=== PATIENT | female | born 1970 | race Caucasian/White ===

== ENCOUNTER 2018-10-06 14:11 | Emergency (ER) | payer OTHER, SELFPAY ==
[2018-10-06 14:12] VITALS: BP 148/98; PULSE 82; RESP 14; TEMP 36.6; O2SAT 94; BMI 35.9
--- NOTE | 2018-10-06 14:28 | CT_ITS ---
STUDY: CT BRAIN WITHOUT CONTRAST REASON FOR EXAM: Female, 48 years old. Seizure new onset RADIATION DOSAGE (If Supplied By Facility): CTDIvol = ( 44.99 ) mGy, DLP = ( 745.49 ) mGycm TECHNIQUE: Transaxial CT imaging of the brain was performed without administration of intravenous contrast material. Individualized dose optimization techniques were used for this CT. COMPARISON: None. FINDINGS: Normal soft tissue structures. Normal calvarium. Normal size ventricles and extra-axial spaces for the patient's age. Normal white matter tracts of the cerebral hemispheres. Normal basal ganglia and thalami. Normal brainstem. Normal cerebellum. There is no intracranial hemorrhage. There are no findings of an acute ischemic infarction. Normal visualized paranasal sinuses. CT/Brain/Head without Contrast IMPRESSION: Normal unenhanced CT scan of the brain. Electronically Signed: Kadie Iglesias MD at 15:52 EST Tel , Service support ,
--- NOTE | 2018-10-06 14:28 | EKG12_ITS ---
Test Reason : SEIZURE Blood Pressure : / mmHG Vent. Rate : 077 BPM Atrial Rate : 077 BPM P-R Int : 152 ms QRS Dur : 098 ms QT Int : 394 ms P-R-T Axes : 032 029 023 degrees QTc Int : 445 ms Normal sinus rhythm Normal ECG Confirmed by HALEY IVERSON MD ([id number]), editorial project manager GILMAR MAYES ([id number]) on 10/07/2018 2:36:48 PM Referred By: MANUEL Confirmed By:HALEY IVERSON MD
--- NOTE | 2018-10-06 14:29 | ED.VISSUMM ---
- ER Visit Summary Date of Service: 10/06/18 Chief Complaint: Seizure History of Present Illness: The patient is a 48 F history of chronic back pain on tramadol. Recently switched over from Vicodin. He has had 2 prior back surgeries. No other medical history. Denies any recent head trauma. She took a shower today. She got out her was cutting her hair and he says she started shaking her eyes glazed over and he lowered her to the floor. He thinks she had around a 3+ minute seizure. She did not fall. There was no injury. She is awoken and is feeling better. She has a history of chronic headaches. She is on no blood thinners. She denies any recent illness other than sinus congestion. She did not eat today. Physical Examination: Vital signs are stable and afebrile. Her initial blood pressure is 148/98.. HEENT exam pupils round reactive light. Mouth is unremarkable. There are no bite crowell on the tongue. Face and head no signs of trauma. No facial droop. Normal speech. Neck nontender. Lungs clear to auscultation bilaterally. Heart rhythm rate about 80 no murmur. Abdomen soft and nontender. She is moving all 4 extremities. They are neurovascularly intact. She has equal symmetrical clay press operator strength 5 out of 5. Fingertip to nose within normal limits. Dorsi plantar flexion intact. There are no motor weakness or loss of sensation either upper or lower extremities. Neurologically she is awake alert with no focal motor deficits. Her NIH score is 0. Back is nontender. Test Results: CBC normal. BMP normal. EKG sinus rhythm rate of 77 no acute signs of MA or ischemia. No dysrhythmia. CT of the brain done without contrast shows no acute abnormality. Read by the radiologist and reviewed by me. Emergency Department Course and Treatment: Middle-aged female with first time reported what sounds like a seizure. Repeat exam at 1621 patient doing well. Neurologic exam normal. I went over all test results with the patient and his significant other in the room. They are comfortable being discharged with outpatient follow-up with her primary care physician and also neurologist. I did explain to them that I do not know currently at this time what may have caused her to have a seizure. She may need to follow-up with outpatient EEG. This may have occurred from her recently stopping narcotic pain medication but there are also no other possibilities. Treatment Plan: No driving. Follow-up with neurology. Return if recurrent seizure. Disposition: Discharge Impression: Acute seizure of uncertain etiology This note was generated with Redapt dictation software. It may contain incorrect words, spelling, and punctuation that were not noted in review of the chart prior to signing ED Disposition - Plan for ED Patient: Referrals: Indira Mcgee DO [STAFF PHYSICIAN] -
--- NOTE | 2018-10-06 14:32 | ED.DCSUM_ITS ---
- ER Visit Summary Date of Service: 10/06/18 Chief Complaint: Seizure History of Present Illness: The patient is a 48 F history of chronic back pain on tramadol. Recently switched over from Vicodin. He has had 2 prior back surgeries. No other medical history. Denies any recent head trauma. She took a shower today. She got out her was cutting her hair and he says she started shaking her eyes glazed over and he lowered her to the floor. He thinks she had around a 3+ minute seizure. She did not fall. There was no injury. She is awoken and is feeling better. She has a history of chronic headaches. She is on no blood thinners. She denies any recent illness other than sinus congestion. She did not eat today. Physical Examination: Vital signs are stable and afebrile. Her initial blood pressure is 148/98.. HEENT exam pupils round reactive light. Mouth is un remarkable. There are no bite crowell on the tongue. Face and head no signs of trauma. No facial droop. Normal speech. Neck nontender. Lungs clear to auscultation bilaterally. Heart rhythm rate about 80 no murmur. Abdomen soft and nontender. She is moving all 4 extremities. They are neurovascularly intact. She has equal symmetrical lockstitcher strength 5 out of 5. Fingertip to nose within normal limits. Dorsi plantar flexion intact. There are no motor weakness or loss of sensation either upper or lower extremities. Neurologically she is awake alert with no focal motor deficits. Her NIH score is 0. Back is nontender. Test Results: CBC normal. BMP normal. EKG sinus rhythm rate of 77 no acute signs of TN or ischemia. No dysrhythmia. CT of the brain done without contrast shows no acute abnormality. Read by the radiologist and reviewed by me. Emergency Department Course and Treatment: Middle-aged female with first time reported what sounds like a seizure. Repeat exam at 1621 patient doing well. Neurologic exam normal. I went over all test results with the patient and his significant other in the room. They are comfortable being discharged with outpatient follow-up with her primary care physician and also neurologist. I did explain to them that I do not know currently at this time what may have caused her to have a seizure. She may need to follow-up with outpatient EEG. This may have occurred from her recently stopping narcotic pain medication but there are also no other possibilities. Treatment Plan: No driving. Follow-up with neurology. Return if recurrent seizure. Disposition: Discharge Impression: Acute seizure of uncertain etiology This note was generated with Phorm dictation software. It may contain incorrect words, spelling, and punctuation that were not noted in review of the chart prior to signing ED Disposition - Plan for ED Patient: Referrals: Indira Mcgee DO [STAFF PHYSICIAN] -
[2018-10-06 14:48] LABS: Absolute Lymphocyte Count 1.83 X10^3/ul (0.83-4.51); Absolute Neutrophil Count 3.2 X10^3/uL (2.0-7.7); Basophil# 0.01 X10^3/uL; Basophil% 0.2 % (0-1); Eosinophil# 0.11 X10^3/uL; Hematocrit 39.6 % (37-47); Lymphocyte # 1.83 X10^3/ul (4.0); Mean Corp Hgb Conc 32.8 g/gl (32-36); Mean Corpuscular Hgb 28.7 pg (27.0-32.0); Mean Corpuscular Volume 87.4 fL (81-99); Monocyte# 0.36 X10^3/uL; Monocyte% 6.5 % (0-10); Neutrophil # 3.23 X10^3/uL (2.7-7.7); Neutrophil % 58.3 % (47-70); Platelet Count 307 K/mm3 (150-450); RBC Distribution Width CV 13.5 % (11.6-14.6); RBC Distribution Width SD 43.3 fl (35.1-43.9); Red Blood Count 4.53 M/mm3 (4.2-5.4); White Blood Count 5.5 K/mm3 (4.4-11.0)
[2018-10-06 14:49] LABS: POSITIVE COUNT NO; POSITIVE DIFFERENTIAL NO; POSITIVE MORPHOLOGY NO
[2018-10-06 14:56] LABS: Anion Gap 9 (5-15); BUN 13 mg/dL (7-18); BUN/Creat Ratio 12.6 RATIO (10-20); Calcium,Total 8.2 mg/dL (8.5-10.1); Chloride 107 mmol/L (98-107); Creatinine, Serum 1.03 mg/dL (0.55-1.02); EST Glomerular Filtration Rate 61 mL/min (>60); Est Glom Filt Rate - Afr Amer 74 mL/min (>60); Estimated Creatinine Clearance 63.21 ml/min; Glucose 105 mg/dL (74-106); Potassium 3.5 mmol/L (3.5-5.1); Sodium Level 138 mmol/L (136-145)
--- NOTE | 2018-10-06 16:24 | ED.DEP ---
ED Disposition - Plan for ED Patient: Disposition: Home or Assisted Living Instructions: ED Seizure New Onset Unk Cause Referrals: Bryson Bradley DO [Primary Care Provider] - Jf Milton MD [STAFF PHYSICIAN] - As soon as possible Additional Instructions: Call and follow-up with her neurologist Dr. Milton or your primary care physician. Due to you having a seizure today they may need to do a follow-up EEG which is a neurological test for seizures. Till seen in follow-up.
[2018-10-06 16:28] VITALS: BP 155/101; PULSE 74; RESP 21; O2SAT 97
== END 2018-10-06 16:29 | disposition home or self-care (01) ==
PROVIDERS: Emergency Provider Emergency Medicine; Family Provider Family Medicine; PCP Family Medicine
DX: R56.9 Unspecified convulsions (principal); M54.9 Dorsalgia, unspecified; G89.29 Other chronic pain; Z79.891 Long term (current) use of opiate analgesic; Z72.0 Tobacco use; Z79.899 Other long term (current) drug therapy
CPT/HCPCS: 70450; 80048; 85025; 93005; 99285; A4216

== ENCOUNTER → 2023-05-15 | Outpatient (CLI) | payer OTHER, MEDICARE, SELFPAY ==
--- NOTE | 2023-05-15 16:16 | RAD_ITS ---
INDICATION: Other spondylosis with myelopathy, cervical region EXAMINATION/TECHNIQUE: X-RAY - XR Spine Cervical 2 or 3 Views: Frontal and lateral views cervical spine COMPARISON: None. FINDINGS: VERTEBRAE: No fracture or compression deformity. Reversal of the normal cervical lordosis with grade 1 anterolisthesis C3 on C4. Minimal diffuse endplate osteophyte formation. Mild upper cervical facet arthropathy.. DISCS: Mild disc height loss at C4-C5. NECK SOFT TISSUES: No prevertebral soft tissue widening. LUNG APICES: Clear. RAD/Cerv Spine 2 or 3 Views IMPRESSION: Mild cervical spondylosis most prominent in the upper abdomen cervical spine with degenerative grade 1 listhesis C3-C4 and disc height loss at C4-C5. Electronically Signed: Efraín Magaña MD at 8:52 EDT ,
== END | disposition home or self-care (01) ==
LOC: RAD 16:09
PROVIDERS: PCP Student in an Organized Health Care Education/Training Program; Referring Provider Anesthesiology Pain Medicine; Visit Provider Anesthesiology Pain Medicine
DX: M47.12 Other spondylosis with myelopathy, cervical region (principal)
CPT/HCPCS: 72040

== ENCOUNTER 2023-08-03 09:02 | Day surgery (SDC) | payer OTHER, MEDICARE, SELFPAY ==
[2023-08-03 09:19] VITALS: BP 113/85; PULSE 118; RESP 18; TEMP 36.6; O2SAT 96; BMI 33.7
--- NOTE | 2023-08-03 09:30 | RAD_ITS ---
EXAM: SPINAL CORD STIM INSERT CLINICAL INDICATION: Pain TECHNIQUE: 3 fluoroscopic images were obtained for spinal cord stimulator insertion. The fluoroscopy time was 3.5 minutes. COMPARISON: No relevant prior studies available. FINDINGS: The procedure was performed by the referring physician. No radiologist was present. Examination was not performed for diagnostic purposes and is not diagnostic. RAD/Fluoroscopy 1 Hr or Less IMPRESSION: Status post spinal cord stimulator insertion. Electronically Signed: David Mike MD at 8:13 EST ,
--- OUTSIDE RECORDS SUMMARY | 2023-08-03 09:41 | XMS RPT_ITS | CCD ---
Author Name Unknown Address [address] [place] [address] Organization [facility] Care Team Providers Care Plant Chief Name Role Phone ROSALIO SON Unavailable Unavailable DAMIEN WHITE Unavailable Unavailable CHRISTINA ELISE DO Primary Care Physician [phone] Samples [place] Guide, Amy Unavailable Unavailable Bravo Castellano Unavailable Unavailable Allergies Allergy Classification Reported Allergen(s) Allergy Type Date of Onset Reaction(s) Facility (1 source) traMADol; Translations: [tramadol] Drug Allergy seizure [facility] Medications Current Medications Medication Drug Class(es) Dates Sig (Normalized) Sig (Original) acetaminophen 325 mg / HYDROcodone bitartrate 7.5 mg oral tablet (1 source) Opioid Agonist Start: 01-04-2022 End: 02-03-2022 take 1 tablet by mouth every six hours as needed for pain [facility] 325- 7.5 mg oral tablet Dose = 1 tab(s), Oral, q6hr, PRN for pain, Emelina GOODMAN denied. Intolerant anf failed Meloxicam. Tramadol contraindicated due to seizure hx on it. Switch to [facility], has tolerated in past, X 30 day(s), # 120 tab(s), 0 Refill(s), Pharmacy: [facility] Start Date: 01/04/22 Stop Date: 02/03/22 Status: Ordered 24 hr amphetamine aspartate 7.5 mg / amphetamine sulfate 7.5 mg / dextroamphetamine saccharate 7.5 mg / dextroamphetamine sulfate 7.5 mg extended release oral capsule (1 source) Central Nervous System Stimulant Start: 01-04-2022 End: 02-03-2022 Adderall XR 30 mg oral capsule, extended release Dose : 30 mg = 1 cap(s), Oral, BID, to fill on or after 01/06/22, # 60 cap(s), 0 Refill(s), Pharmacy: [facility]/pharmacy #[id number], ADD (attention deficit disorder), 167, cm, 06/03/21 10:32:00 EDT, Height, 95.5, kg, 06/03/21 10:32:00 EDT, Dosing Weight Start Date: 01/04/22 Stop Date: 02/03/22 Status: Ordered 24 hr buPROPion hydrochloride 300 mg extended release oral tablet (1 source) Aminoketone Start: 01-04-2022 End: 07-03-2022 take 1 tablet by mouth every hour, then take 1 tablet by mouth once daily Wellbutrin XL 300 mg/24 hours oral tablet, extended release Dose : 300 mg = 1 tab(s), Oral, qDay, # 90 tab(s), 1 Refill(s), [id number], 167, cm, 06/03/21 10:32:00 EDT, Height, kg, 06/03/21 10:32:00 EDT, Dosing Weight Start Date: 01/04/22 Stop Date: 07/03/22 Status: Ordered cholecalciferol 0.125 mg oral capsule (1 source) Vitamin D Start: 01-04-2022 End: 07-03-2022 cholecalciferol 125 mcg (5000 intl units) oral capsule Dose : 125 mcg = 1 cap(s), Oral, qDay, # 90 cap(s), 1 Refill(s), [id number], 167, cm, 06/03/21 10:32:00 EDT, Height, kg, 06/03/21 10:32:00 EDT, Dosing Weight Start Date: 01/04/22 Stop Date: 07/03/22 Status: Ordered 1 ml galcanezumab-gnlm 120 mg/ml auto-injector (2 sources) Start: 01-05-2022 End: 07-04-2022 inject 1 dose by subcutaneous injection every month Emgality Prefilled Pen 120 mg/mL subcutaneous solution Dose : 120 mg =, Subcutaneous, qmonth, fill after starting dose, # 3 EA, 1 Refill(s), Pharmacy: [facility]/pharmacy #[id number], 167, cm, 06/03/21 10:32:00 EDT, Height Start Date: 01/05/22 Stop Date: 07/04/22 Status: Ordered glycerin 2000 mg rectal suppository (1 source) Non-Standardized Chemical Allergen Start: 06-18-2020 take 1 dose rectal route once daily as needed for constipation glycerin adult rectal suppository Dose = 1 supp, Rectal, Daily, PRN for constipation, # 10 supp, 0 Refill(s), Pharmacy: [facility]/pharmacy #[id number], 167, cm, 06/18/20 13:33:00 EST, Height, kg, 06/18/20 13:33:00 EST, Dosing Weight Start Date: 06/18/20 Status: Ordered naloxone hydrochloride 40 mg/ml nasal spray (1 source) Opioid Antagonist Start: 11-16-2021 Narcan 4 mg/0.1 mL nasal spray 1 spray(s), Intranasal, AsDirected, PRN see pharmacy notes, may repeat every 2 to 3 minutes until patient responds, # 2 EA, 0 Refill(s), Pharmacy: [facility]/pharmacy #[id number], buttermaker prescription opiate use, 167, cm, 06/03/21 10:32:00 EDT, Height Start Date: 11/16/21 Status: Ordered Omeprazole (1 source) Proton Pump Inhibitor Start: 09-09-2021 omeprazole Oral, QID, 0 Refill(s) Start Date: 09/09/21 Status: Ordered ondansetron 4 mg disintegrating oral tablet (1 source) Serotonin-3 Receptor Antagonist Start: 12-16-2021 End: 06-14-2022 ondansetron 4 mg oral tablet, disintegrating Dose : 4 mg = 1 tab(s), Oral, q8h, # 270 tab(s), 1 Refill(s), Pharmacy: [facility]/pharmacy #[id number], 167, cm, 06/03/21 10:32:00 EDT, Height, kg, 06/03/21 10:32:00 EDT, Dosing Weight Start Date: 12/16/21 Stop Date: 06/14/22 Status: Ordered 12 hr orphenadrine citrate 100 mg extended release oral tablet (1 source) Muscle Relaxant Start: 01-04-2022 End: 02-03-2022 orphenadrine 100 mg oral tablet, extended release Dose : 100 mg = 1 tab(s), Oral, BID, X 30 day(s), # 60 tab(s), 0 Refill(s), 02/03/22 8:36:00 EDT, [id number], 167, cm, 06/03/21 10:32:00 EDT, Height, kg, 06/03/21 10:32:00 EDT, Dosing Weight Start Date: 01/04/22 Stop Date: 02/03/22 Status: Ordered SUMAtriptan 100 mg oral tablet (1 source) Serotonin-1b and Serotonin-1d Receptor Agonist Start: 11-07-2021 End: 05-06-2022 Imitrex 100 mg oral tablet Dose : 100 mg = 1 tab(s), Oral, qDay, # 30 tab(s), 5 Refill(s), [id number], 167, cm, 06/03/21 10:32:00 EDT, Height, kg, 06/03/21 10:32:00 EDT, Dosing Weight Start Date: 11/07/21 Stop Date: 05/06/22 Status: Ordered Syringes (1 source) Start: 08-08-2021 Syringes See Instructions, dispense 30 1 mL syringes; dx E53.8, # 30 EA, 0 Refill(s), [id number], B12 deficiency, 167, cm, 06/03/21 10:32:00 EDT, Height, 95.5, kg, 06/03/21 10:32:00 EDT, Dosing Weight Start Date: 08/08/21 Status: Ordered Completed/Discontinued Medications Medication Drug Class(es) Dates Sig (Normalized) Sig (Original) cholestyramine 4 g/5 g oral powder for reconstitution (1 source) Start: 06-03-2021 End: 07-03-2021 cholestyramine 4 g/5 g oral powder for reconstitution 1 packet(s), Oral, QID, PRN Diarrhea, # 120 packet(s), 0 Refill(s), [id number], 167, cm, 06/03/21 10:32:00 EDT, Height, kg, 06/03/21 10:32:00 EDT, Dosing Weight Start Date: 06/03/21 Stop Date: 07/03/21 Status: Ordered sucralfate 1000 mg oral tablet (1 source) Aluminum Complex Start: 09-09-2021 Carafate 1 g oral tablet Dose : 1 gram(s) = 1 tab(s), Oral, achs, can exchange with suspension if better covered or if tablet not in pharmacy stock, # 120 tab(s), 0 Refill(s), [id number], 167, cm, 06/03/21 10:32:00 EDT, Height, kg, 06/03/21 10:32:00 EDT, Dos... Start Date: 09/09/21 Status: Ordered vitamin b12 1 mg/ml injectable solution (1 source) Vitamin B12 Start: 09-09-2021 End: 09-04-2022 inject 1 mL by intramuscular injection every month cyanocobalamin 1000 mcg/mL injectable solution Dose : 1,000 mcg = 1 mL, Intramuscular, qmonth, # 7 mL, 1 Refill(s), Pharmacy: [facility]/pharmacy #[id number], 167, cm, 06/03/21 10:32:00 EDT, Height, kg, 06/03/21 10:32:00 EDT, Dosing Weight Start Date: 09/09/21 Stop Date: 09/04/22 Status: Ordered vortioxetine 10 mg oral tablet (1 source) Start: 01-04-2022 take 1 tablet by mouth once daily Trintellix 10 mg oral tablet Dose : 10 mg = 1 tab(s), Oral, qDay, failed zoloft, lexapro, nortriptyline, effexor, cymbalta, # 90 tab(s), 0 Refill(s), Pharmacy: [facility]/pharmacy #[id number], 167, cm, 06/03/21 10:32:00 EDT, Height Start Date: 01/04/22 Status: Ordered Problems Problem Classification Problem Date Documented Date Episodic/Chronic Attention-deficit, conduct, and disruptive behavior disorders (1 source) Attention deficit hyperactivity disorder, 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-2021 Chronic Esophageal disorders (1 source) Gastroesophageal reflux disease 06-12-2019 Chronic Gastroduodenal ulcer (except hemorrhage) (1 source) Peptic ulcer 06-18-2020 Chronic Headache; including migraine (1 source) Migraine 10-06-2019 Chronic Malaise and fatigue (1 source) Fatigue 12-01-2019 Episodic Menopausal disorders (1 source) Menopausal symptom 06-03-2021 Chronic Mood disorders (1 source) Severe major depression 11-03-2019 Chronic Nausea and vomiting (2 sources) Nausea 06-12-2019 Episodic Nutritional deficiencies (1 source) Vitamin D deficiency 12-01-2019 Chronic Nutritional deficiencies (2 sources) Cobalamin deficiency; Translations: [Iron deficiency] 12-01-2019 Episodic Other bone disease and musculoskeletal deformities (6 sources) Segmental and somatic dysfunction 06-12-2019 Episodic Other bone disease and musculoskeletal deformities (1 source) Somatic dysfunction of pelvic region 09-10-2019 Episodic Other connective tissue disease (1 source) Muscle weakness of limb 01-04-2022 Episodic Other connective tissue disease (1 source) Spasm 05-02-2019 Episodic Other connective tissue disease (1 source) Weakness of hand 07-22-2021 Episodic Other endocrine disorders (1 source) 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 Other hereditary and degenerative nervous system conditions (1 source) Restless legs 12-01-2019 Chronic Other nutritional; endocrine; and metabolic disorders (1 source) Obesity 06-12-2019 Chronic Residual codes; unclassified (1 source) Chronic back pain 06-12-2019 Episodic Residual codes; unclassified (1 source) Edema of lower leg 06-12-2019 Episodic Residual codes; unclassified (1 source) H/O Spinal surgery 06-12-2019 Episodic Residual codes; unclassified (1 source) Immunization due 06-12-2019 Episodic Residual codes; unclassified (2 sources) Insomnia 06-12-2019 Episodic Residual codes; unclassified (1 source) Tobacco user 06-12-2019 Episodic Spondylosis; intervertebral disc disorders; other back problems (2 sources) Postlaminectomy syndrome, not elsewhere classified; Translations: [Degeneration of lumbar intervertebral disc] Onset: 04-10-2018 12-01-2019 Chronic Spondylosis; intervertebral disc disorders; other back problems (1 source) Cervical radiculopathy 07-22-2021 Episodic Substance-related disorders (1 source) Drug withdrawal 06-18-2020 Episodic Unclassified (1 source) Cancer cervix screening status 06-12-2019 Unclassified (1 source) Drug therapy finding 11-03-2019 Unclassified (1 source) Finding of employment status 11-12-2020 Unclassified (3 sources) Patient encounter status 06-12-2019 Results Test Name Value Interpretation Reference Range Facil ity Encounters Encounter Date Encounter Type Care Provider Facility Start: 01-18-2022 End: 01-18-2022 Patient encounter procedure CHRISTINA ELISE DO [facility] Start: 04-10-2018 End: 04-11-2018 Patient encounter ROSALIO Jabier SON [facility] Social History Date Type Detail Facility Start: 09-10-2019 Tobacco smoking status Heavy t obacco smoker (finding) [facility] Medical Equipment Procedure Code Equipment Code Equipment Origin al Text Equipment Identifier Dates See Instructions , dispense 30 1.5 inch 25 gauge needle for syringe; dx E53.8, # 30 EA, 0 Refill(s), Pharmacy: [facility]/pharmacy #[id number], 167, cm, 06/03/21 10:32:00 EDT, Height, 95.5, kg, 06/03/21 10:32:00 EDT, Dosing Weight Start: 06-07-2021 Evaluation + Plan note LaboratoryRadiology Note Date & Type Note Facility Evaluation + Plan note Future Appointments Appointment Date:01/23/2022 04:30:00 PM Scheduled Provider:CHRISTINA ELISE DO Location:[facility] Appointment Type: OV Future Scheduled TestsLuteinizing Hormone 06/03/21Complete Blood Count 06/03/21Follicle Stimulating Hormone Level 06/03/21Vitamin D Level 06/13/21MRI Spine Cervical w/ + w/o Contrast 01/18/22MRI Spine Lumbar w/ + w/o Contrast 01/18/22 [facility] Hospital course Narrative Note Date & Type Note Facility Hospital course Narrative No data available for this section [facility] Hospital Discharge instructions Note Date & Type Note Facility Hospital Discharge instructions No data available for this section [facility] Progress note Note Date & Type Note Facility Progress note No data available for this section [facility] Summary Purpose Family History No Family History Records FoundNo Family History Records Found Advance Directives No Advanced Directives Records FoundNo Advanced Directives Records Found Additional Source Comments INFORMATION SOURCE (unrecogn ized section and content) DATE CREATED AUTHOR AUTHOR'S ORGANIZ ATION 01/22/2022 [facility] ([place]) Care Team (unrecognized sect ion and content) Personnel Name: ARIK CHRISTINA Address: [address] [facility] [facility] [place], [place] [address] Name: Brigid Carvalho [place] Guide Name: Bravo Castellano FOR RECORDS PERTAINING TO PATIENTS WHO ARE OR HAVE BEEN ENROLLED IN A CHEMICAL DEPENDENCY/SUBSTANCEABUSE PROGRAM, SOME INFORMATION MAY BE OMITTED. This clinical summary was aggregated from multiple sources. Caution should be exercised in using it in the provision of clinical care. This summary normalizes information from multiple sources, and as a consequence, information in this document may materially change the coding, format and clinical context of patient data. In addition, data may be omitted in some cases. CLINICAL DECISIONS SHOULD BE BASED ON THE PRIMARY CLINICAL RECORDS. [facility] [employer] provides no warranty or guarantee of the accuracy or completeness of information in this document.
[2023-08-03] MEDS: Lactated Ringers 1,000 ML 15 ML IV (09:51)
[2023-08-03] MEDS: Cefazolin 2 GM in 0.9% Normal Saline (100mL Bag) 100 ML IV (11:00)
[2023-08-03] MEDS: Bupivacaine 0.25% 30 ML Vial (11:29)
[2023-08-03] MEDS: Lidocaine 1% /Epi 1:100 (20ml) 20 ML Vial ×2 (11:29→12:00)
[2023-08-03 12:45] VITALS: BP 113/85; BP 130/81; PULSE 108; RESP 16; TEMP 36.4; O2SAT 97
[2023-08-03 12:50] VITALS: BP 113/85; BP 137/99; PULSE 106; RESP 16; O2SAT 97
[2023-08-03 12:55] VITALS: BP 113/85; BP 129/71; PULSE 107; RESP 16; O2SAT 92
[2023-08-03 13:00] VITALS: BP 113/85; BP 123/89; PULSE 107; RESP 16; TEMP 36.6; O2SAT 96
[2023-08-03 13:18] VITALS: BP 113/85
== END 2023-08-03 13:27 | disposition home or self-care (01) ==
LOC: SDC 09:02 → AC 09:03
PROVIDERS: PCP Student in an Organized Health Care Education/Training Program; Referring Provider Anesthesiology Pain Medicine; Visit Provider Anesthesiology Pain Medicine
PROC: (CPT 63685; principal; 2023-08-03 10:15)
DX: M96.1 Postlaminectomy syndrome, not elsewhere classified (principal); F17.210 Nicotine dependence, cigarettes, uncomplicated; M51.36 Other intervertebral disc degeneration, lumbar region; K21.9 Gastro-esophageal reflux disease without esophagitis; F32.A Depression, unspecified; M99.01 Segmental and somatic dysfunction of cervical region; M99.05 Segmental and somatic dysfunction of pelvic region; M99.03 Segmental and somatic dysfunction of lumbar region; M99.08 Segmental and somatic dysfunction of rib cage; M99.02 Segmental and somatic dysfunction of thoracic region; E55.9 Vitamin D deficiency, unspecified; G43.909 Migraine, unspecified, not intractable, without status migrainosus; Z79.899 Other long term (current) drug therapy
CPT/HCPCS: 63650; 63685; 01992; 76000; C1778; C1820; J7120; J2405

== ENCOUNTER 2024-04-27 12:49 | Emergency (ER) | payer MEDICARE, SELFPAY ==
[2024-04-27 12:49] VITALS: BP 174/98; PULSE 108; RESP 16; TEMP 37.2; O2SAT 100
[2024-04-27 13:55] VITALS: BMI 34.2
--- NOTE | 2024-04-27 14:02 | ED.VIS.GI ---
HPI HPI - GI History of Present Illness Chief Complaint: Weakness Informant: patient and spouse/S.O. Abdominal Pain/Flank Pain Onset: Weeks Context: Gradual Onset Timing: Intermittent Quality: Cramping Current Severity: Gone Worsened by: Nothing Relieved by: Nothing Nausea/Vomiting/Emesis GI Symptom: Positive for Nausea; Negative for Vomiting Severity: Mild Diarrhea/Melena/Hematochezia GI Symptom: Positive for Diarrhea; Negative for Melena or Hematochezia Onset: Weeks Stool Quality: Positive for Loose Severity: Mild Associated Symptoms Associated Symptoms: Negative for Dysuria, Frequency, Hematuria or Urgency Narrative Narrative: 54-year-old female history of celiac disease, iron deficiency and prior back surgeries. States she has had generalized weakness for 2 weeks is whenever she eats anything she develops diarrhea if she is not eating she does not have diarrhea she has nausea but no vomiting. No fever. No weight loss. Denies any prior abdominal surgeries. Denies any dysuria. Currently no abdominal pain. At times she gets some epigastric cramping. Prior similar symptoms: No Recent Illness/Hospitalization: No PFSH PFSH Medical History PONV (postoperative nausea and vomiting) Depression Anxiety Arthritis Low iron Restless legs Back pain Injury of back Migraine headache Syncope Seizures Dietary restriction Gastric reflux Smoker Shortness of breath on exertion History of pain when walking History of edema History of stress test History of echocardiogram B12 deficiency anemia Iron deficiency anemia due to chronic blood loss PUD (peptic ulcer disease) Home Medications ?Medication ?Instructions ?Recorded ?Last Taken ?Type sumatriptan succinate 100 mg tablet 100 mg PO DAILY PRN PRN Headache 10/06/18 Unknown History bupropion HCl 300 mg 24 hr tablet, 300 mg PO QAM 02/03/22 Unknown History extended release (Wellbutrin XL) dextroamphetamine-amphetamine 30 30 mg PO DAILY 02/03/22 08/03/23 03:00 History mg tablet (Adderall) naloxone 4 mg/actuation nasal 4 mg intranasal Q2M PRN Anaphylaxis 02/03/22 Unknown History spray (Narcan) ondansetron 4 mg disintegrating 4 mg PO PRN PRN Nausea 02/03/22 Unknown History tablet cholecalciferol (vitamin D3) 125 125 mcg PO DAILY 03/14/22 Unknown History mcg (5,000 unit) capsule orphenadrine citrate 100 mg 100 mg PO PRN PRN Pain 03/14/22 Unknown History tablet,extended release esomeprazole magnesium 40 mg 40 mg PO QAM #90 caps 10/05/22 Unknown Rx capsule,delayed release buprenorphine HCl 300 mcg buccal 600 mcg buccal Q12H 08/01/23 08/03/23 03:00 History film (Belbuca) cyanocobalamin (vitamin B-12) 1,000 mcg IM QMONTH 08/01/23 Unknown History 1,000 mcg/mL injection solution semaglutide 0.25 mg or 0.5 mg (2 0.25 mg subcut QWEEK 08/03/23 07/25/23 History mg/3 mL) subcutaneous pen injector (Ozempic) Allergy/AdvReac Type Severity Reaction Status Date / Time tramadol Allergy seizure Verified 04/27/24 12:49 Family History Mother CVA (cerebral vascular accident) Cancer Hodgkin's lymphoma Anemia Crohn's disease Sister Anemia Surgical History History of cardiac catheterization History of back surgery Social History household members: spouse current occupational status: disabled Smoking Status: Current every day smoker tobacco type: cigarettes Tobacco: How many years used: 20 alcohol intake: never substance use type: does not use caffeine: Yes Type: coffee Number of servings: 2 ROS ROS ED ROS Narrative Abdominal cramping. Nausea. Diarrhea. Constitutional Constitutional ED: Denies chills or fever(s) ENT ENT ED: Denies ear pain Cardiovascular Cardiovascular: Denies chest pain Respiratory/Chest Respiratory/Chest: Denies cough or dyspnea Gastrointestinal Gastrointestinal: Reports abdominal pain, diarrhea and nausea; Denies constipation, melena or vomiting Genitourinary Genitourinary ED: Denies dysuria or hematuria Musculoskeletal Musculoskeletal: Reports back pain; Denies arthralgias Integumentary Denies abscess Neurologic Neurologic: Denies headache(s) Psychiatric Psychiatric: Denies anxiety Endocrine Endocrinology: Denies polydipsia Hematologic/Lymphatic Hematologic/Lymphatic: Denies easy bleeding Allergic/Immunologic Allergic/Immunologic ED: Denies mouth swelling EXAM Physical Exam Narrative Exam Narrative: Well-appearing 54-year-old female. Vital signs stable afebrile. She does not look septic toxic any distress. H EENT exam mild dry mucous membranes. Neck nontender. Lungs clear. Heart tachycardic 108 no murmur. Chest wall ribs nontender. Abdomen soft, nontender, nondistended normal bowel sounds a peritoneal signs. The abdomen is completely nontender. Moving all 4 extremities. Neurovascular intact. Nontender no edema. Back nontender. Prior well-healed surgical incisions. She is awake and alert. No focal motor deficits. Const Vital Signs: 04/27/24 12:49 04/27/24 14:57 Temperature 99 F Temperature Source Temporal Pulse Rate 108 H 72 Respiratory Rate 16 24 H Blood Pressure 174/98 H 158/78 H Blood Pressure Mean 123 104 Pulse Ox 100 94 Oxygen Delivery Method Room Air Room Air Positive well nourished and well developed; Negative for cachectic, contractures or unkempt General Appearance ED: well developed and NAD; Negative for unkempt, cachectic, contractures or pallor Nutritional Appearance: Negative for cachectic HEENT Reports dry mucous membranes; Denies moist mucous membranes normocephalic and atraumatic; Negative for trauma or tenderness Mouth ED: Yes dry mucous membranes Mouth: dry mucous membranes Eyes PERRL and EOMs intact bilaterally General Eye ED: Negative for pale conjunctiva or scleral icterus Neck no lymphadenopathy, supple and no JVD General: Negative for tenderness Resp normal respiratory effort and clear to auscultation bilaterally Effort and Inspection: Negative for respiratory distress Auscultation: Negative for rales, rhonchi or wheezes Cardio regular rhythm, S1 normal heart sound, S2 normal heart sound and no murmurs; Negative for regular rate Rate: tachycardic GI non-tender, non-distended and no masses Inspection: Negative for abdominal distention Auscultation: normoactive bowel sounds Palpation: soft; Negative for tender, guarding or rebound tenderness present Back/Spine no CVA tenderness General Back: Negative for CVA tenderness Cervical Spine: Negative for cervical spine tenderness Thoracic Spine / Upper Back: Negative for thoracic spinal tenderness Lumbar Spine / Lower Back: Negative for lumbar spinal tenderness Coccyx: Negative for other Extremity full ROM General Extremety ED: Negative for edema or tenderness General Extremity: Negative for edema Neuro CN's II-XII intact bilaterally and moves all extremities Sensorium / Orientation: alert, oriented to person, oriented to place and oriented to time; Negative for orientation impaired or confused Motor Exam: strength 5/5 throughout Psych mental status grossly normal and thought process normal Appearance: Negative for unkempt Attitude: No agitated Mood & Affect: Negative for depressed, anxious or tearful Skin no wounds General Skin Exam: Negative for jaundice or pallor Lesions: no lesions Rashes: no rashes Trauma: Negative for abrasion Nails: Negative for discolored MDM MDM MDM Narrative Medical decision making narrative: Well-appearing 54-year-old female complain generalized weakness and diarrhea. Clinically looks mildly dehydrated. IV fluids. Screening labs. This does not sound like C. difficile she only has it when she eats. She is not having multiple episodes a day. Her abdomen is benign I do not think she needs imaging. Treated with IV fluids for dehydration. Zofran for nausea. Screening labs. Repeat exam patient is doing well. She will be given p.o. potassium and potassium prescription for her hypokalemia. Urine culture and started on Macrobid for UTI. She is having urinary symptoms on my looked at her urine and the sample cup it is cloudy. She will follow-up with her primary care physician if the diarrhea does not improve she will need stool cultures. She also wanted iron studies sent because her oncologist wanted it and she was enough to return tomorrow to get those drawn otherwise. History & Record Review Discussion w/independent historian: Patient and Family Additional record(s) reviewed:: Prior inpatient record, Prior outpatient record, Prior ED visit and Prior labs Lab Data Attestation: I reviewed the patient's lab results. Lab results narrative: CBC normal. White count is 6 H&H 13 and 38. Platelets 321. Electrolytes show a potassium of 2.9. Gap 8. Normal BUN of 17 creatinine 0.98. Liver enzymes are normal. Lipase is normal at 28. Urinalysis shows no nitrates. Greater 100 white cells 5-10 epithelial cells 2+ bacteria so it is contaminated. Labs: Laboratory Results - last 24 hr 04/27/24 04/27/24 14:15 14:25 WBC 6.4 RBC 4.21 Hgb 13.5 Hct 38.9 MCV 92.4 MCH 32.1 H MCHC 34.7 RDW Std Deviation 43.9 RDW Coeff of Vickie 13.2 Plt Count 321 MPV 9.5 Immature Gran % (Auto) 0.300 Neut % (Auto) 52.5 Lymph % (Auto) 39.3 [place] % (Auto) 6.2 Eos % (Auto) 1.2 Baso % (Auto) 0.5 Absolute Neuts (auto) 3.4 Absolute Lymphs (auto) 2.53 Nucleated RBC % 0 Sodium 139 Potassium 2.9 L Chloride 104 Carbon Dioxide 27.0 Anion Gap 8 BUN 17 Creatinine 0.98 Estim Creat Clear Calc 77.58 Est GFR (MDRD) Af Amer 77 Est GFR (MDRD) Non-Af 63 BUN/Creatinine Ratio 17.4 Glucose 137 H Calcium 9.9 Total Bilirubin 0.50 AST 24 ALT 32 Alkaline Phosphatase 87 Total Protein 8.1 Albumin 4.6 Globulin 3.5 Albumin/Globulin Ratio 1.3 Lipase 28 Urine Color Yellow Urine Clarity Cloudy Urine pH 6.5 Ur Specific [place] 1.010 Urine Protein 30 H Urine Glucose (UA) Normal Urine Ketones Negative Urine Occult Blood 25 H Urine Nitrite Negative Urine Bilirubin Negative Urine Urobilinogen Normal Ur Leukocyte Esterase 500 H Urine RBC 0 SEEN Urine WBC >100 SEEN Ur Squamous Epith Cells 5-10 SEEN Urine Bacteria 2+ Urine Mucus 0 SEEN Discharge Plan Triage Chief Complaint: Weakness ED Provider: Yusef Vázquez Dx/Rx/DC Orders Prescriptions: No Action dextroamphetamine-amphetamine [Adderall] 30 mg tablet 30 mg PO DAILY naloxone [Narcan] 4 mg/actuation spray,non-aerosol 4 mg intranasal Q2M PRN (Reason: Anaphylaxis) Rx Instructions: spray 1 dose into ONE nostril; alternate nostrils w each dose until help arrives ondansetron 4 mg tablet,disintegrating 4 mg PO PRN PRN (Reason: Nausea) bupropion HCl [Wellbutrin XL] 300 mg tablet extended release 24 hr 300 mg PO QAM cholecalciferol (vitamin D3) 125 mcg (5,000 unit) capsule 125 mcg PO DAILY orphenadrine citrate 100 mg tablet extended release 100 mg PO PRN PRN (Reason: Pain) sumatriptan succinate 100 MG tablet 100 mg PO DAILY PRN PRN (Reason: Headache) buprenorphine HCl [Belbuca] 300 mcg film 600 mcg BUCCAL Q12H Patient Comments: PLEASE SEE ATTACHED FOR DETAILED DIRECTIONS cyanocobalamin (vitamin B-12) 1,000 mcg/mL solution 1,000 mcg IM QMONTH Patient Comments: INJECT ONE ML ONCE MONTHLY INTRAMUSCULARLY Ozempic 0.25 mg or 0.5 mg (2 mg/3 mL) pen injector 0.25 mg subcut QWEEK Rx Instructions: for 4 weeks esomeprazole magnesium 40 mg capsule,delayed release(DR/EC) 40 mg PO QAM Qty: 90 3RF Primary Care Provider: Harpreet Bustos Referrals: Harpreet Bustos DO [Primary Care Provider] - Print Language: Icelandic
[2024-04-27 14:25] LABS: Absolute Lymphocyte Count 2.53 X10^3/uL (0.83-4.51); Absolute Neutrophil Count 3.4 X10^3/uL (2.0-7.7); Basophil# 0.03 X10^3/uL; Basophil% 0.5 % (0-1); Eosinophil# 0.08 X10^3/uL; Eosinophils% 1.2 % (0-5); Hematocrit 38.9 % (37-47); Hemoglobin 13.5 g/dL (12.0-15.0); Lymphocyte # 2.53 X10^3/ul (0.83-4.51); Lymphocyte % 39.3 % (19-41); Mean Corp Hgb Conc 34.7 g/dL (32-36); Mean Corpuscular Hgb 32.1 pg (27.0-32.0); Mean Corpuscular Volume 92.4 fL (81-99); Mean Platelet Vol. 9.5 fl (6.2-12.0); Monocyte% 6.2 % (0-10); NRBC Flagged by Analyzer 0 % (0-5); Neutrophil # 3.37 X10^3/uL (2.7-7.7); Neutrophil % 52.5 % (47-70); Platelet Count 321 K/mm3 (150-450); RBC Distribution Width CV 13.2 % (11.6-14.6); RBC Distribution Width SD 43.9 fl (35.1-43.9); Red Blood Count 4.21 M/mm3 (4.2-5.4); White Blood Count 6.4 K/mm3 (4.4-11.0)
[2024-04-27] MEDS: 0.9% Normal Saline (1000mL) 1,000 ML 999 ML IV (14:31)
[2024-04-27] MEDS: Ondansetron 4 MG/2 ML Vial IV (14:31)
[2024-04-27 14:35] LABS: Mucous, Urine 0 SEEN /hpf (<or=2+); Red Blood Cells-Urine 0 SEEN /hpf (0-5)
[2024-04-27 14:40] LABS: Color, Urine Yellow (Yellow); Glucose, Dipstick Normal (Normal); Ketone-Dipstick Negative (Negative); Leukocyte Esterase-Dipstick 500 /ul (Negative); Nitrite-Dipstick Negative (Negative); Occult Blood-Urine 25 /ul (Negative); Protein-Dipstick 30 mg/dl (Negative); Urine Bilirubin Dipstick Negative (Negative); Urine Clarity Cloudy (Clear); Urine Urobilinogen Normal (Normal); Urine pH 6.5 (5.0 - 8.0)
[2024-04-27 14:44] LABS: ALB/GLOB Ratio 1.3 RATIO (0.9-2.4); AST(SGOT) 24 U/L (15-37); Alanine Aminotransfer ALT/SGPT 32 U/L (13-56); Albumin, Serum 4.6 g/dL (3.2-5.0); Alkaline Phosphatase 87 U/L (45-117); Anion Gap 8 (5-15); BUN 17 mg/dL (7-18); BUN/Creat Ratio 17.4 RATIO (10-20); Calcium,Total 9.9 mg/dL (8.5-10.1); Chloride 104 mmol/L (98-107); Creatinine, Serum 0.98 mg/dL (0.55-1.02); EST Glomerular Filtration Rate 63 mL/min (>60); Est Glom Filt Rate - Afr Amer 77 mL/min (>60); Estimated Creatinine Clearance 77.58 ml/min; Globulin 3.5 g/dL (2.2-4.2); Glucose 137 mg/dL (74-106); Lipase 28 U/L (13-75); Potassium 2.9 mmol/L (3.5-5.1); Protein, Total 8.1 g/dL (6.4-8.2); Sodium Level 139 mmol/L (136-145)
[2024-04-27 14:45] LABS: Squamous Epithelial Cells - UA 5-10 SEEN /hpf (5-10)
[2024-04-27 14:46] LABS: Bacteria 2+ /hpf (None Seen); White Blood Cells >100 SEEN /hpf (0-5)
[2024-04-27 14:57] VITALS: BP 158/78; PULSE 72; RESP 24; O2SAT 94
[2024-04-27] MEDS: Nitrofurantoin Macrocrystals 100 MG Capsule PO (15:41)
[2024-04-27] MEDS: Potassium Chloride Oral Tablet 20 MEQ 60 MEQ PO (15:42)
[2024-04-27 15:55] VITALS: BP 138/89; PULSE 79; RESP 16; TEMP 36.6; O2SAT 99
[2024-04-27 16:37] LABS: Ferritin 52 ng/mL (8-252); Iron 100 ug/dL (50-170); Iron Binding Capacity,Total 415 ug/dL (250-450); PERCENT IRON SATURATION 24.1 % (15.0-55.0)
== END 2024-04-27 15:56 | disposition home or self-care (01) ==
PROVIDERS: Emergency Provider Emergency Medicine; PCP Student in an Organized Health Care Education/Training Program; Visit Provider Emergency Medicine
DX: E86.0 Dehydration (principal); N39.0 Urinary tract infection, site not specified; R11.2 Nausea with vomiting, unspecified; E87.6 Hypokalemia; R19.7 Diarrhea, unspecified; E61.1 Iron deficiency; K90.0 Celiac disease; F17.210 Nicotine dependence, cigarettes, uncomplicated; D51.9 Vitamin B12 deficiency anemia, unspecified; F32.A Depression, unspecified; M19.90 Unspecified osteoarthritis, unspecified site; G43.909 Migraine, unspecified, not intractable, without status migrainosus; K21.9 Gastro-esophageal reflux disease without esophagitis; Z88.5 Allergy status to narcotic agent; Z87.11 Personal history of peptic ulcer disease; Z79.899 Other long term (current) drug therapy; Z98.890 Other specified postprocedural states
CPT/HCPCS: 80053; 81001; 82728; 83540; 83550; 83690; 85025; 87086; 87088; 96361; 96374; 96376; 99284; J7030; A4216; J2405

== ENCOUNTER 2024-05-15 11:46 | Emergency (ER) | payer MEDICARE, SELFPAY ==
[2024-05-15 11:47] VITALS: BP 163/96; PULSE 85; RESP 16; TEMP 37.2; O2SAT 96; BMI 30.3
--- NOTE | 2024-05-15 12:29 | EDS_ITS ---
HPI HPI - GI History of Present Illness Chief Complaint: Nausea/Vomiting/Diarrhea Informant: patient and family Abdominal Pain/Flank Pain Onset: Month(s) Context: Gradual Onset Timing: Intermittent Location: Diffuse Current Severity: Mild Nausea/Vomiting/Emesis GI Symptom: Positive for Nausea and Vomiting Onset: Month(s) Severity: Mild Diarrhea/Melena/Hematochezia GI Symptom: Positive for Diarrhea Stool Quality: Positive for Watery Severity: Moderate Associated Symptoms Associated Symptoms: Negative for Dysuria, Frequency, Hematuria or Urgency Narrative Narrative: 54-year-old female who has chronic back pain is being worked up for that and has an upcoming cyst back surgery to return to get done. She is also chronic abdominal pain nausea, vomiting and diarrhea for greater than a month. She had about 10 pound weight loss. She is seen gastroenterology and initially was set up for a scope but then had to cancel appointment due to other medical problems and needs get that rescheduled. She presented to the ER about 2 to 3 weeks ago. Received IV fluids was diagnosed with hypokalemia and placed on potassium at home. She is hoping today to be admitted for elective colonoscopy which I explained to her would not happen but I was happy to try to make her feel better with IV fluids nausea medication and recheck some labs. I was the one and evaluated her 2 to 3 weeks ago and other than hypokalemia her labs are basically unremarkable. Prior similar symptoms: Yes Recent Illness/Hospitalization: No PFSH PFSH Medical History PONV (postoperative nausea and vomiting) Depression Anxiety Arthritis Low iron Restless legs Back pain Injury of back Migraine headache Syncope Seizures Dietary restriction Gastric reflux Smoker Shortness of breath on exertion History of pain when walking History of edema History of stress test History of echocardiogram B12 deficiency anemia Iron deficiency anemia due to chronic blood loss PUD (peptic ulcer disease) Home Medications ?Medication ?Instructions ?Recorded ?Last Taken ?Type sumatriptan succinate 100 mg tablet 100 mg PO DAILY PRN PRN Headache 10/06/18 Unknown History bupropion HCl 300 mg 24 hr tablet, 300 mg PO QAM 02/03/22 Unknown History extended release (Wellbutrin XL) dextroamphetamine-amphetamine 30 30 mg PO DAILY 02/03/22 08/03/23 03:00 History mg tablet (Adderall) naloxone 4 mg/actuation nasal 4 mg intranasal Q2M PRN Anaphylaxis 02/03/22 Unknown History spray (Narcan) ondansetron 4 mg disintegrating 4 mg PO PRN PRN Nausea 02/03/22 Unknown History tablet cholecalciferol (vitamin D3) 125 125 mcg PO DAILY 03/14/22 Unknown History mcg (5,000 unit) capsule orphenadrine citrate 100 mg 100 mg PO PRN PRN Pain 03/14/22 Unknown History tablet,extended release esomeprazole magnesium 40 mg 40 mg PO QAM #90 caps 10/05/22 Unknown Rx capsule,delayed release buprenorphine HCl 300 mcg buccal 600 mcg buccal Q12H 08/01/23 08/03/23 03:00 History film (Belbuca) cyanocobalamin (vitamin B-12) 1,000 mcg IM QMONTH 08/01/23 Unknown History 1,000 mcg/mL injection solution semaglutide 0.25 mg or 0.5 mg (2 0.25 mg subcut QWEEK 08/03/23 07/25/23 History mg/3 mL) subcutaneous pen injector (Ozempic) fluconazole 200 mg tablet 400 mg (2 x 200 mg) PO DAILY #2 04/27/24 Unknown Rx (Diflucan) tabs nitrofurantoin 100 mg PO BID 7 days #14 caps 04/27/24 Unknown Rx monohydrate/macrocrystals 100 mg capsule (Macrobid) potassium chloride 10 mEq 20 meq (2 x 10 mEq) PO BID 10 days 04/27/24 Unknown Rx tablet,extended release(part/cryst) #40 tabs Allergy/AdvReac Type Severity Reaction Status Date / Time tramadol Allergy seizure Verified 05/15/24 11:47 Family History Mother CVA (cerebral vascular accident) Cancer Hodgkin's lymphoma Anemia Crohn's disease Sister Anemia Surgical History History of cardiac catheterization History of back surgery Social History household members: spouse current occupational status: disabled Smoking Status: Current every day smoker tobacco type: cigarettes Tobacco: How many years used: 20 alcohol intake: never substance use type: does not use caffeine: Yes Type: coffee Number of servings: 2 ROS ROS ED ROS Narrative Overall month-long history may be several months of intermittent abdominal pain with persistent diarrhea and intermittent nausea and vomiting. 10 pound weight loss. Constitutional Constitutional ED: Denies chills or fever(s) ENT ENT ED: Denies ear pain Cardiovascular Cardiovascular: Denies chest pain Respiratory/Chest Respiratory/Chest: Denies cough or dyspnea Gastrointestinal Gastrointestinal: Reports abdominal pain, diarrhea, nausea and vomiting; Denies constipation or melena Genitourinary Genitourinary ED: Denies dysuria or hematuria Musculoskeletal Musculoskeletal: Denies arthralgias Integumentary Denies abscess Neurologic Neurologic: Denies headache(s) Psychiatric Psychiatric: Reports anxiety Endocrine Endocrinology: Denies polydipsia Hematologic/Lymphatic Hematologic/Lymphatic: Denies easy bleeding Allergic/Immunologic Allergic/Immunologic ED: Denies mouth swelling EXAM Physical Exam Narrative Exam Narrative: Well-appearing 54-year-old female. Vital signs stable afebrile. She does not look septic or toxic. She does have mildly dry mucous membranes. HEENT exam other than dried tongue unremarkable. Neck nontender no lymphadenopathy. Lungs clear to auscultation bilaterally. Heart regular rate and rhythm rate about 80 no murmur. Chest wall ribs nontender. Abdomen soft, nontender, nondistended, normal bowel sounds without peritoneal signs. Moving all 4 extremities. Nontender no edema. Neurologically she is awake alert no focal motor deficits. Const Vital Signs: 05/15/24 11:47 05/15/24 13:46 Temperature 98.9 F Temperature Source Oral Pulse Rate 85 77 Respiratory Rate 16 15 Blood Pressure 163/96 H 168/88 H Blood Pressure Mean 118 114 Pulse Ox 96 95 Oxygen Delivery Method Room Air Room Air Positive well nourished and well developed; Negative for cachectic, contractures or unkempt General Appearance ED: well developed and NAD; Negative for unkempt, cachectic, contractures or pallor Nutritional Appearance: Negative for cachectic HEENT Reports dry mucous membranes; Denies moist mucous membranes normocephalic and atraumatic; Negative for trauma or tenderness Mouth ED: Yes dry mucous membranes Mouth: dry mucous membranes Eyes PERRL and EOMs intact bilaterally General Eye ED: Negative for pale conjunctiva or scleral icterus Neck no lymphadenopathy, supple and no JVD General: Negative for tenderness Carotids: Negative for other Resp normal respiratory effort and clear to auscultation bilaterally Effort and Inspection: Negative for respiratory distress Auscultation: Negative for rales, rhonchi, wheezes or diminished lung sounds Cardio regular rate, regular rhythm, S1 normal heart sound, S2 normal heart sound and no murmurs Rate: Negative for bradycardia or tachycardic Rhythm: Negative for abnormal rhythm GI non-tender, non-distended and no masses Inspection: Negative for abdominal distention Auscultation: normoactive bowel sounds Palpation: soft; Negative for tender, guarding, pulsatile mass or rebound tend erness present Back/Spine no CVA tenderness General Back: Negative for CVA tenderness Cervical Spine: Negative for cervical spine tenderness Thoracic Spine / Upper Back: Negative for thoracic spinal tenderness Lumbar Spine / Lower Back: Negative for lumbar spinal tenderness Coccyx: Negative for other Extremity full ROM General Extremety ED: Negative for edema, tenderness or other findings General Extremity: Negative for edema or other findings Neuro CN's II-XII intact bilaterally, moves all extremities and no sensory deficits noted Sensorium / Orientation: alert, oriented to person, oriented to place and oriented to time; Negative for orientation impaired, confused, lethargic or stuporous Motor Exam: strength 5/5 throughout; Negative for general weakness or strength abnormal Psych mental status grossly normal and thought process normal Appearance: Negative for unkempt Attitude: No agitated Mood & Affect: Negative for depressed, anxious or tearful Skin no wounds General Skin Exam: Negative for jaundice or pallor Lesions: no lesions Rashes: no rashes Trauma: Negative for abrasion Nails: Negative for discolored MDM MDM MDM Narrative Medical decision making narrative: 34-year-old female history of chronic abdominal pain, diarrhea with nausea vomiting. Had a recent evaluation which was negative and her hypokalemia. She was recently treated for UTI but urine culture came back negative. She is having no urinary symptoms. Screening labs to be obtained. Patient be treated with a liter normal saline because she looks dehydrated. Her last BUN/creatinine were normal however. She will be given Zofran for nausea. Repeat exam patient is doing well at 2:12 PM. She will be discharged home with outpatient follow-up. History & Record Review Discussion w/independent historian: Patient and Family Additional record(s) reviewed:: Prior inpatient record, Prior outpatient record, Prior ED visit and Prior labs Lab Data Attestation: I reviewed the patient's lab results. Lab results narrative: CBC shows a white count of 6. H&H 13 and 40. Platelets 311. Electrolytes show a potassium of 3.5 which is much better than her prior 2.9. Gap of 8. Normal BUN and creatinine of 14 and 0.9. Glucose 104. Labs: Laboratory Results - last 24 hr 05/15/24 12:29 WBC 6.0 RBC 4.30 Hgb 13.4 Hct 40.5 MCV 94.2 MCH 31.2 MCHC 33.1 RDW Std Deviation 43.9 RDW Coeff of Vickie 12.8 Plt Count 311 MPV 9.6 Immature Gran % (Auto) 0.200 Neut % (Auto) 63.9 Lymph % (Auto) 28.7 [place] % (Auto) 5.7 Eos % (Auto) 0.8 Baso % (Auto) 0.7 Absolute Neuts (auto) 3.8 Absolute Lymphs (auto) 1.72 Nucleated RBC % 0 Sodium 141 Potassium 3.5 Chloride 110 H Carbon Dioxide 23.0 Anion Gap 8 BUN 14 Creatinine 0.93 Estim Creat Clear Calc 76.93 Est GFR (MDRD) Af Amer 81 Est GFR (MDRD) Non-Af 67 BUN/Creatinine Ratio 15.1 Glucose 104 Calcium 9.3 Discharge Plan Triage Chief Complaint: Nausea/Vomiting/Diarrhea ED Provider: Yusef Vázquez Dx/Rx/DC Orders Prescriptions: No Action dextroamphetamine-amphetamine [Adderall] 30 mg tablet 30 mg PO DAILY naloxone [Narcan] 4 mg/actuation spray,non-aerosol 4 mg intranasal Q2M PRN (Reason: Anaphylaxis) Rx Instructions: spray 1 dose into ONE nostril; alternate nostrils w each dose until help arrives ondansetron 4 mg tablet,disintegrating 4 mg PO PRN PRN (Reason: Nausea) bupropion HCl [Wellbutrin XL] 300 mg tablet extended release 24 hr 300 mg PO QAM cholecalciferol (vitamin D3) 125 mcg (5,000 unit) capsule 125 mcg PO DAILY orphenadrine citrate 100 mg tablet extended release 100 mg PO PRN PRN (Reason: Pain) sumatriptan succinate 100 MG tablet 100 mg PO DAILY PRN PRN (Reason: Headache) buprenorphine HCl [Belbuca] 300 mcg film 600 mcg BUCCAL Q12H Patient Comments: PLEASE SEE ATTACHED FOR DETAILED DIRECTIONS cyanocobalamin (vitamin B-12) 1,000 mcg/mL solution 1,000 mcg IM QMONTH Patient Comments: INJECT ONE ML ONCE MONTHLY INTRAMUSCULARLY Ozempic 0.25 mg or 0.5 mg (2 mg/3 mL) pen injector 0.25 mg subcut QWEEK Rx Instructions: for 4 weeks potassium chloride 10 mEq tablet,ER particles/crystals 20 meq PO BID 10 Days Qty: 40 0RF nitrofurantoin monohyd/m-cryst [Macrobid] 100 mg capsule 100 mg PO BID 7 Days Qty: 14 0RF Rx Instructions: must administer with a meal/food fluconazole [Diflucan] 200 mg tablet 400 mg PO DAILY Qty: 2 0RF Rx Instructions: Take this once you are done with your antibiotics so you will not get or it will treat a yeast infection. esomeprazole magnesium 40 mg capsule,delayed release(DR/EC) 40 mg PO QAM Qty: 90 3RF Primary Care Provider: Harpreet Bustos Referrals: Harpreet Bustos, [Primary Care Provider] - Print Language: Citizen [place]
[2024-05-15] MEDS: Ondansetron 4 MG/2 ML Vial IV (12:33)
[2024-05-15] MEDS: 0.9% Normal Saline (1000mL) 1,000 ML 999 ML IV (12:33)
[2024-05-15 12:37] LABS: Absolute Lymphocyte Count 1.72 X10^3/uL (0.83-4.51); Absolute Neutrophil Count 3.8 X10^3/uL (2.0-7.7); Basophil# 0.04 X10^3/uL; Basophil% 0.7 % (0-1); Eosinophil# 0.05 X10^3/uL; Eosinophils% 0.8 % (0-5); Hematocrit 40.5 % (37-47); Hemoglobin 13.4 g/dL (12.0-15.0); Lymphocyte # 1.72 X10^3/ul (0.83-4.51); Lymphocyte % 28.7 % (19-41); Mean Corp Hgb Conc 33.1 g/dL (32-36); Mean Corpuscular Hgb 31.2 pg (27.0-32.0); Mean Corpuscular Volume 94.2 fL (81-99); Mean Platelet Vol. 9.6 fl (6.2-12.0); Monocyte# 0.34 X10^3/uL; Monocyte% 5.7 % (0-10); NRBC Flagged by Analyzer 0 % (0-5); Neutrophil # 3.83 X10^3/uL (2.7-7.7); Neutrophil % 63.9 % (47-70); Platelet Count 311 K/mm3 (150-450); RBC Distribution Width CV 12.8 % (11.6-14.6); RBC Distribution Width SD 43.9 fl (35.1-43.9)
[2024-05-15 12:52] LABS: Anion Gap 8 (5-15); BUN 14 mg/dL (7-18); BUN/Creat Ratio 15.1 RATIO (10-20); Calcium,Total 9.3 mg/dL (8.5-10.1); Chloride 110 mmol/L (98-107); Creatinine, Serum 0.93 mg/dL (0.55-1.02); EST Glomerular Filtration Rate 67 mL/min (>60); Est Glom Filt Rate - Afr Amer 81 mL/min (>60); Estimated Creatinine Clearance 76.93 ml/min; Glucose 104 mg/dL (74-106); Potassium 3.5 mmol/L (3.5-5.1); Sodium Level 141 mmol/L (136-145)
[2024-05-15 13:46] VITALS: BP 168/88; PULSE 77; RESP 15; O2SAT 95
[2024-05-15 14:26] VITALS: BP 149/85; PULSE 83; RESP 16; TEMP 36.2; O2SAT 97
== END 2024-05-15 14:26 | disposition home or self-care (01) ==
PROVIDERS: Emergency Provider Emergency Medicine; PCP Student in an Organized Health Care Education/Training Program; Visit Provider Emergency Medicine
DX: R11.2 Nausea with vomiting, unspecified (principal); R19.7 Diarrhea, unspecified; F17.210 Nicotine dependence, cigarettes, uncomplicated; E86.0 Dehydration
CPT/HCPCS: 80048; 85025; 96361; 96374; 99283; J7030; A4216; J2405